=== PATIENT | male | born 1980 | race Caucasian/White ===

== ENCOUNTER → 2016-12-11 | Outpatient (CLI) | payer OTHER ==
[~2016-12-11] MED LIST: CHOL20009 PO; MELA1TAB4 PO; MULT-220 PO; [UNRECOGNIZED DRUG - CODE] OP
--- NOTE | 2016-12-11 14:10 | DIAGNOSTIC IMAGING REPORT ---
RIGHT KNEE 3 VIEWS CLINICAL HISTORY: INTERNAL DERANGEMENT OF RIGHT KNEE Right pain. COMPARISON: None. DISCUSSION: The bones and joint spaces appear intact. There is no evidence of fracture, dislocation or bony disease. There is no evidence for soft tissue swelling. IMPRESSION: Negative study. The above report was generated using voice recognition software. It may contain grammatical, syntax or spelling errors. Electronically signed by: Bismark Pereyra M.D. 12/11/2016 2:09 PM Dictated Date/Time: 12/11/2016 2:09 PM
== END | disposition home or self-care (01) ==
LOC: C.RDSM 14:44
PROVIDERS: ATTEND Family Medicine
DX: M25.561 Pain in right knee (principal)

== ENCOUNTER → 2016-12-16 | Outpatient (CLI) | payer OTHER ==
--- NOTE | 2016-12-16 15:57 | DIAGNOSTIC IMAGING REPORT ---
RIGHT LOWER EXT JOINT WITHOUT CLINICAL HISTORY: PAIN IN R KNEE, INTERNAL DERANGEMENT OF R KNEE Right pain TECHNIQUE: Multi axial MRI acquisition COMPARISON STUDY: None FINDINGS: Signal characteristics the osseous structures are uniform throughout. There is no bone marrow replacing process. Anterior and posterior cruciate ligaments are intact. Medial lateral collateral ligaments are unremarkable. The patellofemoral joint is unremarkable. The patellar retinaculum are intact. Evaluation of the menisci demonstrates the lateral meniscus to be unremarkable in signal character and configuration. There is a horizontal tear of the medial meniscus extending from the mid meniscus to the posterior horn. Tear extends to the meniscal apex at its extreme posterior margin. IMPRESSION: 1. Tear mid and posterior horn medial meniscus. 2. Remainder the study is negative. The above report was generated using voice recognition software. It may contain grammatical, syntax or spelling errors. Electronically signed by: Bismark Pereyra M.D. 12/16/2016 3:56 PM Dictated Date/Time: 12/16/2016 3:51 PM
== END | disposition home or self-care (01) ==
LOC: C.MRIBC 14:37
PROVIDERS: ATTEND Family Medicine
DX: S83.241A Other tear of medial meniscus, current injury, right knee, initial encounter (principal); X58.XXXA Exposure to other specified factors, initial encounter